=== PATIENT | female | born 1990 | race Caucasian/White ===

== ENCOUNTER 2023-06-27 17:06 | Emergency (ER) | payer OTHER, SELFPAY ==
[2023-06-27 17:08] VITALS: BP 150/97; PULSE 86; RESP 20; TEMP 36.7; O2SAT 98; BMI 20.4
[2023-06-27 17:15] VITALS: PULSE 91
--- NOTE | 2023-06-27 17:15 | ED.PSYCH1 ---
Documented by User: [email or web address] Lr 06/27/23 18:38 HPI - Psych General Chief Complaint: Psychiatric Symptoms Stated Complaint: SUICIDE Time Seen by Provider: 06/27/23 17:13 Source: Reports patient Mode of arrival: ambulance Limitations: Reports no limitations History of Present Illness HPI Narrative: 33-year-old female presents by squad for depression. She states that her and her girlfriend have been fighting for the past 3 months and she was trying to leave and was asking why her gun was so she could take it with her and not because she wanted to kill herself and the girlfriend called the police. She states that she was packing up because she was going go back to her family in the area. She does state that she is depressed and does not feel like her life has a purpose and does not see the point in living, but she does not have a plan. Denies HI. Denies frequent alcohol use. She does vape from marijuana pen intermittently, otherwise denies illicit drug use. Related Data Allergies Allergy/AdvReac Type Severity Reaction Status Date / Time No Known Drug Allergies Allergy Verified 06/27/23 17:08 Review of Systems ROS Status of ROS 10 or more systems reviewed and unremarkable except as noted in history and below Exam Narrative Exam Narrative: General: alert, no distress, talking in full an complete sentences skin: warm, dry, intact head: normocephalic, atraumatic eyes: EOMI nose: nares patent throat: no stridor neck: supple, trachea midline respiratory: non-labored extremities: FROM x 4 neuro: A&Ox3 psych: appropriate mood and affect, cooperative Constitutional Vital Signs, click to edit/add: Last Vital Signs Temp 98.1 F 06/27/23 17:08 Pulse 86 06/27/23 17:08 Resp 20 06/27/23 17:08 BP 150/97 H 06/27/23 17:08 Pulse Ox 98 06/27/23 17:08 O2 Del Method Room Air 06/27/23 17:08 Course Vital Signs Vital signs: Vital Signs Temperature 98.1 F 06/27/23 17:08 Pulse Rate 86 06/27/23 17:08 Respiratory Rate 20 06/27/23 17:08 Blood Pressure 150/97 H 06/27/23 17:08 Pulse Oximetry 98 06/27/23 17:08 Oxygen Delivery Method Room Air 06/27/23 17:08 Temperature 98.1 F 06/27/23 17:08 Pulse Rate 86 06/27/23 17:08 Respiratory Rate 20 06/27/23 17:08 Blood Pressure 150/97 H 06/27/23 17:08 Pulse Oximetry 98 06/27/23 17:08 Oxygen Delivery Method Room Air 06/27/23 17:08 MDM - Psych MDM Narrative Medical decision making narrative: Hotline talked to the patient and she is safety plan home. They will follow-up outpatient. F/u with PCP. afebrile, not tachypneic, not tachycardic, tolerating p.o., not hypoxic, non toxic appearing and ambulating at baseline and hemodynamically stable to be d/c. answered all questions. pt in agreement with tx. educated when to return to ER. Discharge Plan Discharge Chief Complaint: Psychiatric Symptoms Clinical Impression: Suicidal ideation Depression Qualifiers: Depression Type: unspecified Qualified Code(s): F32.A - Depression, unspecified Patient Disposition: Home, Self-Care Time of Disposition Decision: 18:37 Condition: Good Mode of Transportation: Private Vehicle Instructions: Depression (ED), Help Prevent Suicide (ED) Additional Instructions: Safety plan is been done. Continue to take Lexapro. Follow-up with your PCP for increased in medication of Lexapro as recommended by PCP and psychiatrist. Stand Alone Forms: Portal Instructions Discharge Date/Time: 06/27/23 18:41 Documented by User: Victorino Galdamez MD 06/27/23 19:32 HPI - Psych General Chief Complaint: Psychiatric Symptoms Stated Complaint: SUICIDE Time Seen by Provider: 06/27/23 17:13 History of Present Illness HPI Narrative: 33-year-old female presents by squad for depression. She states that her and her have been fighting for the past 3 months about IVF and she was trying to leave To go to [place] and stay with her brother and was asking for her gun was so she could take it with her and not because she wanted to kill herself; and the called the police. She states that she was packing up because she was going go back to her family in the area. She does state that she is depressed and does not feel like her life has a purpose and does not see the point in living, but she does not have a plan. Denies HI. Denies frequent alcohol use. She does vape from marijuana pen intermittently, otherwise denies illicit drug use. Patient is currently taking Lexapro 10 mg, patient has an appointment with her PCP next week to increase it to 20 mg most likely. Patient has counseling that she is involved in. Patient works at [employer], she works at 9:00 tonight and wants to make sure that she is discharged if possible so she cannot miss work tonight. Patient said that she is not suicidal, she's never try to hurt or kill herself. She is not homicidal, she never made threats or wanting to hurt her life. Patient did not take any medication to try to overdose today. Patient says that he got is still on a package, her had a would not give it back to her and she wanted because she was going to her brother's house in [place]. Patient denies any sexual, physical or mental abuse besides not getting along with her . Patient has good eye contact, appears to be very truthful. Patient is very cooperative. Patient does not want to be in the Emergency Room right now but understands a process. Related Data Allergies Allergy/AdvReac Type Severity Reaction Status Date / Time No Known Drug Allergies Allergy Verified 06/27/23 17:08 Exam Constitutional Vital Signs, click to edit/add: Last Vital Signs Temp 98.1 F 06/27/23 17:08 Pulse 86 06/27/23 17:08 Resp 20 06/27/23 17:08 BP 150/97 H 06/27/23 17:08 Pulse Ox 98 06/27/23 17:08 O2 Del Method Room Air 06/27/23 17:08 Course Vital Signs Vital signs: Vital Signs Temperature 98.1 F 06/27/23 17:08 Pulse Rate 86 06/27/23 17:08 Respiratory Rate 20 06/27/23 17:08 Blood Pressure 150/97 H 06/27/23 17:08 Pulse Oximetry 98 06/27/23 17:08 Oxygen Delivery Method Room Air 06/27/23 17:08 Temperature 98.1 F 06/27/23 17:08 Pulse Rate 86 06/27/23 17:08 Respiratory Rate 20 06/27/23 17:08 Blood Pressure 150/97 H 06/27/23 17:08 Pulse Oximetry 98 06/27/23 17:08 Oxygen Delivery Method Room Air 06/27/23 17:08 MDM - Psych MDM Narrative Medical decision making narrative: Hotline [facility] talked to the patient and she is safety plan home. They will follow-up outpatient. F/u with PCP. afebrile, not tachypneic, not tachycardic, tolerating p.o., not hypoxic, non toxic appearing and ambulating at baseline and hemodynamically stable to be d/c. answered all questions. pt in agreement with tx. educated when to return to ER. Safety plan was made. Patient has never been suicidal, homicidal. Patient not delirious. Patient is may comments that life may not be worth living or she does not want to be here, but these are comments and she is currently taking Catapres and throat are not helping and she understands her need to be dose increased. Patient is future is sick. Patient wants to go to work tonight. Patient knows that she needs additional help with medication, therapy and counseling. Patient's parents are not around, her brother lives in [place]. Patient feels safe. Patient states that she does not want to hurt or kill herself, but she does get frustrated because she wants to feel better and . No illicit drug use or significant alcohol use. Patient appreciates help, and has been extremely cooperative. Patient has a functional decision-making capacity to be discharged, go to work, and continue to follow up with outpatient program. Discharge Plan Discharge Chief Complaint: Psychiatric Symptoms Clinical Impression: Suicidal ideation Depression Qualifiers: Depression Type: unspecified Qualified Code(s): F32.A - Depression, unspecified Patient Disposition: Home, Self-Care Time of Disposition Decision: 18:37 Condition: Good Mode of Transportation: Private Vehicle Instructions: Depression (ED), Help Prevent Suicide (ED) Additional Instructions: Safety plan is been done. Continue to take Lexapro. Follow-up with your PCP for increased in medication of Lexapro as recommended by PCP and psychiatrist. Stand Alone Forms: Portal Instructions Discharge Date/Time: 06/27/23 18:41
== END 2023-06-27 18:41 | disposition home or self-care (01) ==
PROVIDERS: Emergency Provider Emergency Medicine
DX: R45.851 Suicidal ideations (principal); F32.A Depression, unspecified
CPT/HCPCS: 80048; 80307; 81001; 99283